=== PATIENT | male | born 1995 | race Caucasian/White ===

== ENCOUNTER 2018-07-20 04:41 | Emergency (ER) | payer OTHER ==
[2018-07-20] MEDS ORDERED: Ibuprofen 800 MG TAB ONE (05:00)
--- NOTE | 2018-07-20 07:55 | ULT ---
SCROTAL ULTRASOUND: Date: 07/20/18 INDICATION: Right-sided testicular pain; history of trauma to the right testicle. TECHNIQUE: Weber scale, color Doppler, and spectral Doppler images were obtained of the scrotum. FINDINGS: The right testicle measures 4.6 x 2.2 x 2.9 cm. The left testicle measures 4.5 x 2.5 x 2.9 cm. There is normal vascular flow to both testicles. No hydrocele is evident. Epididymides appear within normal limits. IMPRESSION: 1. No intratesticular mass or torsion demonstrated. 2. No zac hydrocele demonstrated. 3. Epididymi appear within normal limits. POS: BH
== END 2018-07-20 06:02 | disposition home or self-care (01) ==
LOC: ERS 04:41
DX: N50.811 Right testicular pain (principal)
CPT/HCPCS: 76870; 93976